=== PATIENT | male | born 1995 | race Caucasian/White ===

== ENCOUNTER 2021-02-28 20:35 | Observation (INO) | payer BC ==
[~2021-02-28] VITALS: Ht 175.3 cm; Wt 75.3 kg
[2021-03-01 03:18] LABS: HEMOGLOBIN 13.3 gm/dl (14.0-17.5); RED BLOOD COUNT 4.23 M/UL (4.20-5.50); WHITE BLOOD COUNT 12.3 K/UL (4.5-11.0)
[2021-03-01 03:43] LABS: BUN/CREATININE RATIO 12 (0-10)
[2021-03-01] MEDS ORDERED: HYDROCODON-ACE1 EAC4 PO (09:58)
== END 2021-03-01 16:44 | disposition home or self-care (01) ==
LOC: M/S 22:09
PROVIDERS: ADMIT Surgery
PROC: 0DTJ4ZZ Resection of Appendix, Percutaneous Endoscopic Approach (ICD-10-PCS; principal; 2021-03-01 08:34)
DX: K35.30 Acute appendicitis with localized peritonitis, without perforation or gangrene (principal); Z20.822 Contact with and (suspected) exposure to COVID-19
CPT/HCPCS: 36415; 80048; 85025; G0378; G0379; J0690; J2001; J2250; J2270; J2543; J2704; J2710; J3010; J7120